=== PATIENT | female | born 1965 | race Caucasian/White ===

== ENCOUNTER 2023-04-02 15:32 | Emergency (ER) | payer OTHER, SELFPAY ==
[2023-04-02 15:46] VITALS: BP 114/80
[2023-04-02 16:02] LABS: % Basophils 0.5 % (0-2); % Eosinophils 1.2 % (0-6); % Immature Granulocytes 0.2 % (0-0.5); % Lymphocytes 33.5 % (20.5-51.1); % Monocytes 8.6 % (1.7-9.3); Absolute Eosinophils 0.1 10^3/uL (0-0.7); Absolute Lymphocytes 2.2 10^3/uL (1.2-3.4); Absolute Monocytes 0.6 10^3/uL (0.1-0.6); Absolute Neutrophils 3.6 10^3/uL (1.4-6.5); Hematocrit 35.3 % (37.0-47.0); Hemoglobin 11.5 g/dL (12.0-16.0); Mean Corp Hgb Conc. 32.6 g/dL (33.0-37.0); Mean Corpuscular Hgb 26.2 pg (27.0-31.0); Mean Corpuscular Volume 80.4 fL (81.0-99.0); Mean Platelet Volume 8.5 fL (7.4-10.4); Nucleated Red Blood Cells % 0 %; Platelet Count 268 10^3/uL (130-400); Red Blood Cell Count 4.39 10^6/uL (4.20-5.40); White Blood Cell Count 6.4 10^3/uL (4.8-10.8)
[2023-04-02 16:15] LABS: D-Dimer 0.68 ug/mlFEU (0.00-0.50)
[2023-04-02 16:23] LABS: ALT (SGPT) 12 U/L (0-35); AST (SGOT) 18 U/L (14-36); Albumin 3.6 g/dl (3.5-5.0); Alkaline Phosphatase 137 U/L (38-126); Blood Urea Nitrogen 18 mg/dl (7-17); Calcium 9.1 mg/dl (8.4-10.2); Carbon Dioxide 27 mmol/L (22-30); Chloride 102 mmol/L (98-107); Glucose 106 mg/dl (70-99); Potassium 4.5 mmol/L (3.5-5.1); Sodium 139 mmol/L (135-145); Total Bilirubin 0.4 mg/dl (0.2-1.3); Total Protein 7.1 g/dl (6.3-8.2); eGFR > 60.00
[2023-04-02 16:28] LABS: Troponin I < 0.012 ng/ml
[2023-04-02 19:30] VITALS: BP 130/70
--- NOTE | 2023-04-02 20:04 | ED.GENMED ---
History of Present Illness
General
Chief Complaint: Abdominal Pain
Source: patient
Exam Limitations: none
Time Seen by Provider: 04/02/23 16:23
Travel History
Have you had any contact with someone who has COVID-19?: No
Do you have any symptoms of coronavirus? Fever > 100 degrees, chills, cough, shortness of breath, sore throat, loss of taste or smell, muscle aches, or headache?: No
History of Present Illness
History of Present Illness:
58-year-old female who presents with 3 days of pain in the left side that is worse when she takes a deep breath. She is noticed yesterday also that she had pain up toward her neck which she never had before. Patient has a history of left
lobectomy. Patient also had a pulmonary embolism in the past related to traveling. Patient is not currently anticoagulated. Patient was sent here to rule out a pulmonary embolism. Patient denies hemoptysis. No leg swelling. States the pain is
worse when she takes deep breath on the left. No vomiting
Past History
Past History
ED Past Medical History: Cancer, Hyperthyroidism and Other (PERICARDITIS, GERD/ULCER, MVP)
ED Past Surgical History: Other (lung surgery)
PSI?: No
Social History
Tobacco: Non-smoker
Alcohol: Occasional
Drug: None
Personal:
Living: with family
Phy Exam
Physical Exam
Physical Exam:
CONSTITUTIONAL Patient alert and oriented to person, place and time. Well-appearing. Vital signs reviewed.
HEAD atraumatic, normocephalic.
EYES eyelids normal to inspection, Pupils equally round and reactive to light, Extraocular muscles intact, Conjunctiva normal, Sclera normal.
NECK normal range of motion, Trachea midline, no jugular venous distention.
RESPIRATORY CHEST No respiratory distress noted, Chest expansion equal, diminished at left base.
CARDIOVASCULAR regular rate and rhythm, Heart sounds normal.
ABDOMEN abdomen nontender, Bowel sounds normal. No distention.
BACK normal inspection, no obvious deformities
UPPER EXTREMITY range of motion normal, Motor strength normal, no cyanosis, no edema.
LOWER EXTREMITY range of motion normal, Motor strength normal, no cyanosis, no edema.
NEURO Speech normal, No focal motor deficits, Silvina coma scale 15, Memory normal, Cranial Nerves intact to screening exam.
SKIN skin warm, dry, and normal in color.
PSYCHIATRIC patient oriented to person place and time, Normal affect.
Course
Orders/Labs/Results
Orders:
Orders
04/02/23 15:49
Electrocardiogram (*1) Urgent
Reason for Study: Chest Pain
EKG- Treatment ONCE
04/02/23 15:55
Complete Blood Count/With Diff Urgent
Comprehensive Metabolic Panel Urgent
D-Dimer Urgent
Troponin I Urgent
04/02/23 16:37
CT Chest Pe Study Urgent
Comment:
Reason For Exam: L pleuritic pain, h/o PE
Abnormal Lab Results
04/02/23
15:55
Hgb 11.5 L g/dL
(12.0-16.0)
Hct 35.3 L %
(37.0-47.0)
MCV 80.4 L fL
(81.0-99.0)
MCH 26.2 L pg
(27.0-31.0)
MCHC 32.6 L g/dL
(33.0-37.0)
D-Dimer 0.68 H ug/mlFEU
(0.00-0.50)
BUN 18 H mg/dl
(7-17)
Glucose 106 H mg/dl
(70-99)
Alkaline Phosphatase 137 H U/L
(38-126)
04/02/23 15:55
04/02/23 15:55
Vital Signs
Initial and Last Documented VS:
Initial Vital Signs
Temp Pulse Resp BP Pulse Ox
98.6 F 98 18 114/80 98
04/02/23 15:46 04/02/23 15:46 04/02/23 15:46 04/02/23 15:46 04/02/23 15:46
Last Documented Vital Signs
Temp Pulse Resp BP Pulse Ox
98.6 F 98 16 130/70 98
04/02/23 15:46 04/02/23 19:30 04/02/23 19:30 04/02/23 19:30 04/02/23 19:30
MDM/Problems Addressed
MDM/Problems Addressed:
Pleuritic chest pain, chronic hydropneumothorax
*Radiology
Radiology exam reviewed: preliminary read by ED provider and radiology read reviewed
*Pulse Oximetry
Patient hypoxic: no
*EKG
Interpreted by ED Provider?: Yes
Interpretation: normal
Rate: normal
Rhythm: sinus
Interval: normal interval
QRS Pattern: normal QRS
Ischemia: no ischemia
*Save All Operator Interpretation
Rate: normal
Interpretation: normal
Rhythm: sinus
*Critical Care Note
Total Time (30-74mins, 75-104mins- exclusive of procedures): Not Applicable
Data Reviewed
Source: patient
Further Testing Considered But Not Given:
Consider chest x-ray but will check CT
Patient Management
Escalation/DeEscalation of care consider admission/obs:
Patient appears well. CT reads no change from previous. Question whether this is pleurisy related to chronic findings of hydropneumothorax. Also could be scar tissue related. Recommended the patient use incentive spirometer 10 times per hour
while awake. Also recommended NSAIDs. Also recommended outpatient pulmonology follow-up
ED Attending Note
-
Portions of this chart may have been created with voice recognition software.� Occasional wrong word or��sound alike� substitutions may have occurred due to the inherent limitations of voice recognition software.
Discharge Plan
Departure
Patient Disposition: Home (Routine Discharge)
Date of Disposition: 04/02/23
Time of Disposition: 20:08
Patient with high blood pressure during this ER visit?: No
Discharge Problem:
Pleurisy
Instructions: Pleuritic chest pain
Prescriptions:
No Action
venlafaxine [Effexor XR] 37.5 MG capsule,extended release 24hr
37.5 mg PO DAILY
methimazole 5 MG tablet
5 mg PO Q48H
fluticasone propionate 1 SPRAY spray,suspension
1 spray intranasal DAILYPRN PRN (Reason: congestion)
fexofenadine 180 mg Tablet
180 mg PO DAILY
Eliquis 5 mg tablet
5 mg PO BID Qty: 100 1RF
Rx Instructions:
2 tablets twice a day for 13 doses, then 1 tablet twice a day
Referrals:
Ravindra Phelan DO [Family Provider] -
Activity Restrictions/Additional Instructions:
Return immediately for shortness of breath, worsening symptoms, fevers, coughing up blood or any other concerns. Please see your doctor or clerk guide in the next 3 to 5 days for follow-up and reevaluation. Use your incentive spirometer 10 times
per hour while awake as discussed
Interventions
Interventions:
*Risk Screen - Suicide Last Done: 04/02/23 16:55
*General Assessment Last Done: 04/02/23 16:55
*Neglect/Abuse Screening Last Done: 04/02/23 16:55
ED- Fall Risk Assessment Last Done: 04/02/23 16:55
== END 2023-04-02 20:21 | disposition home or self-care (01) ==
LOC: EMR 15:32
PROVIDERS: Emergency Medicine; EMERGENCY PHYSICIAN Emergency Medicine; FAMILY PHYSICIAN Family Medicine
DX: R09.1 Pleurisy (principal)
CPT/HCPCS: 99285; 71275; 80053; 84484; 85025; 85379; 93005; Q9967

== ENCOUNTER 2023-04-24 13:46 | Emergency (ER) | payer OTHER, SELFPAY ==
[2023-04-24 13:58] VITALS: BP 98/69
[2023-04-24 14:23] LABS: Urine Albumin Trace (Neg - Trace); Urine Bilirubin 1+ (Negative); Urine Character Clear (Clear); Urine Color Amber; Urine Glucose Negative (Negative); Urine Ketone Negative (Negative); Urine Leukocyte Trace (Negative); Urine Nitrite Negative (Negative); Urine Occult Blood 1+ (Negative); Urine Specific Gravity 1.015 (<1.030); Urine Urobilinogen Negative (Neg - 1+)
[2023-04-24 14:36] LABS: Urine Urothelial Cell 0-2 /LPF (FEW)
[2023-04-24 14:37] LABS: Urine Bacteria Few (Negative); Urine Red Blood Cell 0-2 /HPF (0-2); Urine Squamous Cell 16-20 /LPF (Few)
[2023-04-24 15:39] LABS: % Basophils 0.4 % (0-2); % Eosinophils 1.1 % (0-6); % Immature Granulocytes 0.3 % (0-0.5); % Lymphocytes 23.8 % (20.5-51.1); % Monocytes 9.9 % (1.7-9.3); % Neutrophils 64.5 % (42.2-75.2); Absolute Eosinophils 0.1 10^3/uL (0-0.7); Absolute Lymphocytes 1.7 10^3/uL (1.2-3.4); Absolute Monocytes 0.7 10^3/uL (0.1-0.6); Absolute Neutrophils 4.5 10^3/uL (1.4-6.5); Hematocrit 33.6 % (37.0-47.0); Mean Corp Hgb Conc. 32.7 g/dL (33.0-37.0); Mean Corpuscular Hgb 25.7 pg (27.0-31.0); Mean Corpuscular Volume 78.5 fL (81.0-99.0); Mean Platelet Volume 8.5 fL (7.4-10.4); Nucleated Red Blood Cells % 0 %; Platelet Count 298 10^3/uL (130-400); Red Blood Cell Count 4.28 10^6/uL (4.20-5.40); Red Cell Dist. Width 13.8 % (11.5-14.5)
[2023-04-24 16:00] LABS: ALT (SGPT) 11 U/L (0-35); AST (SGOT) 18 U/L (14-36); Albumin 3.8 g/dl (3.5-5.0); Alkaline Phosphatase 122 U/L (38-126); Blood Urea Nitrogen 16 mg/dl (7-17); Calcium 8.6 mg/dl (8.4-10.2); Carbon Dioxide 26 mmol/L (22-30); Chloride 103 mmol/L (98-107); Glucose 101 mg/dl (70-99); Lipase 66 U/L (23-300); Potassium 4.2 mmol/L (3.5-5.1); Sodium 136 mmol/L (135-145); Total Bilirubin 0.6 mg/dl (0.2-1.3); Total Protein 7.5 g/dl (6.3-8.2); eGFR > 60.00
[2023-04-24 16:27] VITALS: BP 101/57
[2023-04-24 16:33] VITALS: BMI 28.2
--- NOTE | 2023-04-24 16:44 | ED.GENMED ---
History of Present Illness
General
Chief Complaint: Abdominal Pain
Source: patient
Exam Limitations: none
Time Seen by Provider: 04/24/23 16:01
Nursing documentation reviewed up to this point in time: agreed with
Travel History
Have you had any contact with someone who has COVID-19?: No
Do you have any symptoms of coronavirus? Fever > 100 degrees, chills, cough, shortness of breath, sore throat, loss of taste or smell, muscle aches, or headache?: No
History of Present Illness
History of Present Illness:
Patient to ED with complaint of bilateral back pain with radiation of pain to left abdomen. States her pain started 5 weeks ago. She was seen in ED to r/o PE, which was ruled out. States 2 days after discharge she was diagnosedd with UTI. PCP
placed her on an antibiotic however a few days later antibiotic was switched as bacteria was resistant to original antibiotic. States her urinary symptoms never improved. Reports low grade fever (100.3) and chills. PCP ordere outpatient CT for
her but it is not scheduled until nex week. She feels her pain is worsening. +nausea, no vomiting or diarrhea. Taking tramadol with temporary relief of pain. Brought to ED by daughter for eval. Still reports increased pain with deep breathing.
No cough. Eating and drinking normally
Past History
Past History
ED Past Medical History: Cancer, Hyperthyroidism and Other (PERICARDITIS, GERD/ULCER, MVP)
ED Past Surgical History: Other (lung surgery)
PSI?: No
Social History
Tobacco: Non-smoker
Alcohol: Occasional
Drug: None
Personal:
Living: with family
Review of Systems
Review of Systems
Allergies reviewed?: Yes
All Other Systems: ROS reviewed and negative except as documented in HPI and ROS
Constitutional: Reports no symptoms
EENT: Reports no symptoms
Respiratory: Reports other (lelft posterior chest pain with deep breathing)
Cardiac: Reports no symptoms
ABD/GI: Reports abdominal pain (left sided abdominal pain)
: Reports no symptoms
Musculoskeletal: Reports back pain (bilateral middle back discomfort, radiating to left abdomen. Pain is constant.)
Skin: Reports no symptoms
Neurological: Reports no symptoms
Psychiatric: Reports no symptoms
Phy Exam
General Physical Exam
General Presentation: well appearing and no apparent distress
General age: appears stated age
General Skin: warm and dry
General Habitus: normal
General Mental: alert
Cardiovascular Exam
Cardiovascular Exam: regular rate/rhythm and no edema
Pulmonary Exam
Pulmonary Exam: lungs clear and no respiratory distress
Gastrointestinal Exam
Gastrointestinal Exam: normal bowel sounds, soft, no pulsatile mass, non distended and no cva tenderness
Palpation: generalized: Mild tenderness
Musculoskeletal Exam
Musculoskeletal Exam: full ROM and neuro vasc intact
Skin Exam
Skin Exam: normal color, warm/dry and no rash
Psychiatric Exam
Psychiatric Exam: normal mood/affect
Course
Orders/Labs/Results
Orders:
Orders
04/24/23 14:10
Urinalysis Reflex To Culture Urgent
Date Specimen was Collected: 04/24/23
Time Specimen was Collected: 14:06
Urine Microscopic Reflex Cult Urgent
04/24/23 15:34
Complete Blood Count/With Diff Urgent
Comprehensive Metabolic Panel Urgent
Lipase Urgent
04/24/23 16:38
Ketorolac [Toradol] 30 mg IV NOW STA
04/24/23 16:43
CT Abd/pel W Iv And Oral Contr Urgent
Comment:
Reason For Exam: left abd pain
Iohexol [Omnipaque] See Protocol PO NOW STA
04/24/23 16:48
Ondansetron Injectable [Zofran] 4 mg IV NOW STA
Abnormal Lab Results
04/24/23 04/24/23
14:10 15:34
Hgb 11.0 L g/dL
(12.0-16.0)
Hct 33.6 L %
(37.0-47.0)
MCV 78.5 L fL
(81.0-99.0)
MCH 25.7 L pg
(27.0-31.0)
MCHC 32.7 L g/dL
(33.0-37.0)
Absolute Monos (auto) 0.7 H 10^3/uL
(0.1-0.6)
Monocytes % 9.9 H %
(1.7-9.3)
Glucose 101 H mg/dl
(70-99)
Ur Occult Blood Reflex 1+ A
(Negative)
Urine Bilirubin 1+ A
(Negative)
Leukocyte Esterase Rfl Trace A
(Negative)
Urine Bacteria (Reflex) Few A
(Negative)
04/24/23 15:34
04/24/23 15:34
Vital Signs
Initial and Last Documented VS:
Initial Vital Signs
Temp Pulse Resp BP Pulse Ox
99.7 F 117 18 98/69 96
04/24/23 13:58 04/24/23 13:58 04/24/23 13:58 04/24/23 13:58 04/24/23 13:58
Last Documented Vital Signs
Temp Pulse Resp BP Pulse Ox
99.7 F 84 23 103/51 97
04/24/23 13:58 04/24/23 19:00 04/24/23 19:00 04/24/23 18:01 04/24/23 18:45
*Radiology
Radiology exam reviewed: radiology read reviewed
*Pulse Oximetry
Patient hypoxic: no
*Critical Care Note
Total Time (30-74mins, 75-104mins- exclusive of procedures): Not Applicable
ED Attending Note
-
Portions of this chart may have been created with voice recognition software.� Occasional wrong word or��sound alike� substitutions may have occurred due to the inherent limitations of voice recognition software.
Discharge Plan
Departure
Patient Disposition: Home (Routine Discharge)
Date of Disposition: 04/24/23
Time of Disposition: 20:25
Patient with high blood pressure during this ER visit?: No
Condition: Good
Covid-19: Not Applicable
Discharge Problem:
Abdominal pain
Instructions: Abdominal Pain
Prescriptions:
No Action
venlafaxine [Effexor XR] 37.5 MG capsule,extended release 24hr
37.5 mg PO DAILY
Referrals:
Ravindra Phelan DO [Family Provider] - Follow up in 2-3 days
Everett Conner MD [Active] - Call in 1-3 days for appt
Interventions
Interventions:
*Risk Screen - Suicide Last Done: 04/24/23 16:33
*General Assessment Last Done: 04/24/23 13:58
*Neglect/Abuse Screening Last Done: 04/24/23 16:33
ED- Fall Risk Assessment Last Done: 04/24/23 16:33
*ED COVID-19 Vaccine History Last Done: 04/24/23 13:58
WM-[id number]-[id number] Assessment Last Done: 04/24/23 16:33
[2023-04-24] MEDS: ZOFRAN 4 MG IV (16:50)
[2023-04-24] MEDS: OMNIPAQUE 50 ML PO (16:50)
[2023-04-24] MEDS: TORADOL 30 MG IV (16:50)
[2023-04-24 17:00] VITALS: BP 87/54
[2023-04-24 17:29] VITALS: BP 105/52
--- NOTE | 2023-04-24 17:30 | EDRN ---
the pt pressed the call suarez and this RN entered the pts room, the pt stated to this RN, 'I just cannot drink this without ice, this contrast is disgusting', this RN notified the pt that the two cups of contrast did have ice in them and that they
were both flavored, the pt stated to this RN, 'Well they are warm now and i can't drink them like this', this RN added more ice to the pts contrast cups
[2023-04-24 18:01] VITALS: BP 103/51
--- NOTE | 2023-04-24 18:15 | EDRN ---
the pt pressed the call suarez and this RN and Cole whitlock entered the pts room, and the pt stated to this RN, 'I still cannot drink this, it's too warm, i just can't do this, i need more ice', this RN added more ice to the pts two contrast cups which
had barely been consumed, this RN notified Gypsy Shafer, this RN also noticed that the pts daughter brought her a large [employer] coffee to the pts bedside, this RN notified Gypsy Shafer and this RN notified the pt that she should hold off on
drinking coffee and work on the PO contrast, will continue to monitor the pt closely
--- NOTE | 2023-04-24 18:30 | EDRN ---
the pt pressed the call suarez and this RN entered the pts room along with Cole whitlock, the pts stated to this RN and the tech, 'I still can't drink this it's too warm', this RN notified the pt that ice had already been added to both cups of contrast
and that she needed to try her best to drink them, when this RN asked the pt if she was nauseous she stated that she was not, Gypsy Shafer notified, will continue to monitor the pt closely
== END 2023-04-24 21:33 | disposition home or self-care (01) ==
LOC: EMR 13:46
PROVIDERS: Emergency Medicine; EMERGENCY PHYSICIAN Emergency Medicine; FAMILY PHYSICIAN Family Medicine
DX: R10.9 Unspecified abdominal pain (principal); E05.90 Thyrotoxicosis, unspecified without thyrotoxic crisis or storm; K21.9 Gastro-esophageal reflux disease without esophagitis; I34.1 Nonrheumatic mitral (valve) prolapse; I31.9 Disease of pericardium, unspecified
CPT/HCPCS: 99284; 96374; 96375; 74177; 80053; 81003; 81015; 83690; 85025; Q9967

== ENCOUNTER → 2023-08-12 06:31 | Day surgery (SDC) | payer OTHER, SELFPAY | LOC: GI 06:31 | PROVIDERS: ATTENDING PHYSICIAN Internal Medicine; FAMILY PHYSICIAN Family Medicine | DX: Z12.11 Encounter for screening for malignant neoplasm of colon (principal); K64.8 Other hemorrhoids; K57.30 Diverticulosis of large intestine without perforation or abscess without bleeding; D17.5 Benign lipomatous neoplasm of intra-abdominal organs; D50.9 Iron deficiency anemia, unspecified; R05.3 Chronic cough; K29.50 Unspecified chronic gastritis without bleeding | CPT/HCPCS: 43239; G0121; 88305; 88342 ==